=== PATIENT | male | born 1965 | race Caucasian/White ===

== ENCOUNTER → 2018-01-31 | Outpatient (CLI) | payer MEDICAID ==
[~2018-01-31] MED LIST: GADOBUTROL 10 MMOL/10 ML VIAL ONE
== END | disposition home or self-care (01) ==
LOC: RAD 13:09
PROVIDERS: ATTEND Internal Medicine Endocrinology, Diabetes & Metabolism
DX: E23.0 Hypopituitarism (principal); D75.1 Secondary polycythemia; R90.82 White matter disease, unspecified; E66.9 Obesity, unspecified
CPT/HCPCS: 70553; A9585